=== PATIENT | male | born 2005 | race Caucasian/White ===

== ENCOUNTER 2024-09-17 07:41 | Outpatient (RCR) | payer MEDICAID, SELFPAY | END 2024-09-20 23:59 | disposition home or self-care (01) | LOC: GPT 07:41 | PROVIDERS: Family Provider Pediatrics Adolescent Medicine; Visit Provider Nurse Practitioner | DX: M54.9 Dorsalgia, unspecified (principal); G89.29 Other chronic pain | CPT/HCPCS: 97161 ==

== ENCOUNTER 2024-09-26 21:03 | Outpatient (RCR) | payer MEDICAID, SELFPAY | END 2024-10-21 23:59 | disposition home or self-care (01) | LOC: GPT 21:03 | PROVIDERS: Family Provider Pediatrics Adolescent Medicine; Visit Provider Nurse Practitioner | DX: M54.9 Dorsalgia, unspecified (principal); G89.29 Other chronic pain | CPT/HCPCS: 97110; 97112; 97140; 97530 ==

== ENCOUNTER 2024-10-23 08:17 | Outpatient (RCR) | payer MEDICAID, SELFPAY | END 2024-11-20 23:59 | disposition home or self-care (01) | LOC: GPT 08:17 | PROVIDERS: Family Provider Pediatrics Adolescent Medicine; Visit Provider Nurse Practitioner | DX: M54.9 Dorsalgia, unspecified (principal); G89.29 Other chronic pain | CPT/HCPCS: 97110; 97112; 97164; 97530 ==

== ENCOUNTER 2024-11-21 05:00 | Outpatient (RCR) | payer MEDICAID, SELFPAY | END 2024-12-21 23:55 | disposition home or self-care (01) | LOC: GPT 05:00 | PROVIDERS: Family Provider Pediatrics Adolescent Medicine; Visit Provider Nurse Practitioner | DX: M54.9 Dorsalgia, unspecified (principal); G89.29 Other chronic pain | CPT/HCPCS: 97110; 97112; 97530 ==

== ENCOUNTER 2024-12-22 06:30 | Outpatient (RCR) | payer MEDICAID, SELFPAY | END 2025-01-20 23:59 | disposition home or self-care (01) | LOC: GPT 06:30 | PROVIDERS: Family Provider Pediatrics Adolescent Medicine; Visit Provider Nurse Practitioner | DX: M54.9 Dorsalgia, unspecified (principal); G89.29 Other chronic pain | CPT/HCPCS: 97110; 97530 ==

== ENCOUNTER 2025-01-21 05:00 | Outpatient (RCR) | payer MEDICAID, SELFPAY | END 2025-02-20 23:59 | disposition home or self-care (01) | LOC: GPT 05:00 | PROVIDERS: Visit Provider Nurse Practitioner | DX: M54.9 Dorsalgia, unspecified (principal); G89.29 Other chronic pain | CPT/HCPCS: 97110; 97530 ==

== ENCOUNTER 2025-02-21 05:00 | Outpatient (RCR) | payer MEDICAID, SELFPAY | END 2025-03-11 15:21 | disposition home or self-care (01) | LOC: GPT 05:00 | PROVIDERS: Visit Provider Nurse Practitioner | DX: M54.50 Low back pain, unspecified (principal); G89.29 Other chronic pain | CPT/HCPCS: 97110; 97112 ==